=== PATIENT | male | born 1975 | race African-American/Black ===

== ENCOUNTER 2019-10-19 20:43 | Emergency (ER) | payer OTHER ==
[~2019-10-19] VITALS: Ht 185.4 cm; Wt 101.8 kg
[2019-10-19] MEDS ORDERED: ROSUVASTATIN (21:06)
[2019-10-19 22:48] LABS: BASOPHILS % 0.5 % (0.0-2.0); EOSINOPHILS % 1.8 % (0.0-5.0); HEMATOCRIT. 40.4 % (42.0-52.0); HEMOGLOBIN. 13.5 g/dL (14.0-18.0); LYMPHOCYTES % 32.1 % (20.0-50.0); MEAN CORPUSCULAR HEMOGLOBIN 29.6 pg (28.0-32.0); MEAN CORPUSCULAR VOLUME 88.5 fL (80.0-94.0); MEAN PLATELET VOLUME 7.6 fl (7.4-10.4); MONOCYTES % 8.4 % (2.0-8.0); NEUTROPHILS % 57.2 % (40.0-76.0); PLATELET 288 x1000/uL (130-400); RED BLOOD CELL COUNT 4.57 mill/uL (4.7-6.1); RED CELL DISTRIBUTION WIDTH 14.2 % (11.6-14.6)
[2019-10-19 23:12] LABS: CHLORIDE 107 mEq/L (98-107)
[2019-10-19] MEDS ORDERED: ASPIRIN 325MG TABLET PO ONE (23:30)
[2019-10-20 07:30] VITALS: BP 104/54
== END 2019-10-20 07:58 | disposition short-term general hospital (02) ==
LOC: ER 20:43
DX: R07.9 Chest pain, unspecified (principal); E78.00 Pure hypercholesterolemia, unspecified
CPT/HCPCS: 36415; 71045; 80053; 83880; 84484; 85025; 93005; 99285